=== PATIENT | female | born 1955 | race Caucasian/White ===

== ENCOUNTER 2018-11-14 08:28 | Outpatient (REF) | payer BC, SELFPAY ==
[2018-11-14 22:05] LABS: Anion Gap 7.9 mmol/L (3-11); BUN 20 mg/dL (7-18); CO2 29.1 mmol/L (21.0-32.0); CREATININE 0.78 mg/dL (0.55-1.02); Calcium 9.4 mg/dL (8.5-10.1); Calculated LDL 119 mg/dL; Chloride 102 mmol/L (98-107); Cholesterol 206 mg/dL (50-200); Glucose 81 mg/dL (70-100); HDL Cholesterol 48 mg/dL (40-60); Potassium 4.1 mmol/L (3.5-5.1); Sodium 139 mmol/L (136-145); Triglyceride 195 mg/dL (30-150)
== END 2018-11-14 08:48 ==
LOC: NCHCN 08:28
PROVIDERS: PCP Family Medicine; Visit Provider Internal Medicine
DX: I10 Essential (primary) hypertension (principal); E78.1 Pure hyperglyceridemia
CPT/HCPCS: 80048; 80061

== ENCOUNTER 2018-12-28 09:24 | Outpatient (REF) | payer BC, SELFPAY ==
[2018-12-28 21:28] LABS: Anion Gap 10.5 mmol/L (3-11); BUN 24 mg/dL (7-18); CO2 26.5 mmol/L (21.0-32.0); CREATININE 0.87 mg/dL (0.55-1.02); Calcium 9.4 mg/dL (8.5-10.1); Chloride 101 mmol/L (98-107); Glucose 71 mg/dL (70-100); Sodium 138 mmol/L (136-145)
== END 2018-12-28 09:44 ==
LOC: NCHCN 09:24
PROVIDERS: PCP Family Medicine; Visit Provider Internal Medicine
DX: I10 Essential (primary) hypertension (principal)
CPT/HCPCS: 80048

== ENCOUNTER 2019-01-31 16:55 | Outpatient (REF) | payer BC, SELFPAY ==
[2019-01-31 21:13] LABS: Potassium 3.8 mmol/L (3.5-5.1)
== END 2019-01-31 17:15 ==
LOC: NCHCN 16:55
PROVIDERS: PCP Family Medicine; Visit Provider Internal Medicine
DX: E87.6 Hypokalemia (principal)
CPT/HCPCS: 84132

== ENCOUNTER 2019-02-26 09:08 | Day surgery (SDC) | payer BC, SELFPAY ==
[2019-02-26 09:24] VITALS: BP 145/88; PULSE 76; RESP 16; TEMP 36.4; O2SAT 97
[2019-02-26] MEDS: Lactated Ringers 1,000 ML 80 ML IV (09:46)
--- NOTE | 2019-02-26 10:30 | W.UPDATEHP ---
Date of service: 02/26/19 Time of Service: 10:30 Updated H&P Refer to Most Recent Clinic Note/H&P Dated: 01/28/19 H&P was reviewed,patient examined Changes Noted: Jenna also has a bump over the palmar aspect of the index MCP which continues to bother her. This is likely a palmar corn or inclusion cyst and she asked if this could be removed. We can do this at the same time as the carpal and cubital tunnel. The risks of recurrence and pain were discussed and she agreed to proceed. Heart and Lungs Reviewed: Heart RRR and Lungs CTA
--- NOTE | 2019-02-26 10:45 | PDOC.DSDIS_ITS ---
Discharge Plan Disposition Patient Disposition: HOME Condition: Good Discharge Details Reason For Visit: Right Cubital Tunnel and Carpal Tunnel Syndrome Attending Provider: Isac Aceves Primary Care Provider: Meredith Victor Home Meds and New Rx's Prescriptions: New hydrocodone-acetaminophen 5-325 mg tablet 1 tab PO Q6H PRN PRN (Reason: pain) Qty: 6 RF: 0 ibuprofen 600 mg tablet 600 mg PO TID PRNQty: 90 RF: 3 Continued valsartan 160 mg tablet 160 mg PO HS RF: 0 amlodipine 5 mg tablet 10 mg PO HS RF: 0 Discharge Instructions Additional Instructions: Activity: You should stay in the sling for the first 2 weeks for comfort. You may come out of the sling for gentle motion and hygiene but should largely remain in the sling to allow the incision site to heal. Gentle motion of the elbow, hand, wrist, and fingers is okay and encouraged after the first few days, but no repetitive activites nor heavy lifting. You may apply ice. Medications: - You should take Tylenol (1000mg every 8 hours) and Ibuprofen (600mg every 8 hours) as needed. I recommend taking around the clock for the first few days. - You have been prescribed Hydrocodone for breakthrough pain. Dressings: - The initial surgical dressings should stay in place for 3 days. It may then be removed and kept clean and dry. You should cover with a light gauze dressing/bandaid. - You may shower after 3 days and get the wounds wet. Follow-up: 10 days Referrals: Isac Aceves MD [ [facility] STAFF PHYSICIAN] - Equipment/Supplies: Sling Activity:: Elevate Remove Dressings/Wound Care:: 72 hours Shower/Bathe:: 72 hours Diet:: As Tolerated Discharge Orders Discharge Orders: Discharge Order (Routine); Ordered 02/26/19 Ordered By: Isac Aceves DS: Diagnosis Discharge Diagnosis (1) Right carpal tunnel syndrome: Status: Acute (2) Cubital tunnel syndrome on right: Status: Acute
[2019-02-26] MEDS: ceFAZolin 2 GM/50 ML BAG IVPB (10:53)
[2019-02-26 12:25] VITALS: BP 118/73; PULSE 50; RESP 12; TEMP 36.5; O2SAT 95
[2019-02-26 12:52] VITALS: BP 124/81; PULSE 62; RESP 16; TEMP 36.4; O2SAT 96
--- NOTE | 2019-02-27 07:23 | ROE_ITS ---
Date of service: 02/26/19 Time of Service: 12:23 Operative Note Operative Note DATE OF PROCEDURE: 02/26/19 PRE-OP DIAGNOSIS: Right carpal tunnel syndrome, Right cubital tunnel syndrome, Right palmar hyperkeratotic lesion POST-OP DIAGNOSIS: same PROCEDURE: Left Cubital Tunnel Decompression, left endoscopic carpal tunnel release, excision of left hand corn SURGEON: Isac Aceves BIOMETRIC SCREENER: Maegan Waddell ANESTHESIA: GETA ESTIMATED BLOOD LOSS: 0 PATHOLOGY: none sent TOURNIQUET TIME: 30 COMPLICATIONS: None Patient was transported to: PACU Patient's condition: stable Indications: Jenna is a 63-year-old female who has had symptoms of cubital tunnel and carpal tunnel syndrome. Nonoperative treatment options had been trialed. Nerve conduction studies identified the cubital tunnel as the point of compression. Given failure of nonoperative treatments and persistent symptoms, I offered operative intervention. I reviewed the technical details of a cubital tunnel decompression with possible anterior subcutaneous transposition. I reviewed the risk of the procedure to include bleeding, infection, pain, stiffne ss, tendon instability, damage to the superficial radial nerve, and complete release. Despite these risks, the patient elected to proceed. On the day of surgery she also reported some pain with a lesion over the palmar aspect of her right index MCP. It appeared to be hyperkeratotic lesion. She been trying to keep this pared down but continued to have pain of this area and asked if this could be also be addressed. In evaluation it appeared to be a hyperkeratotic lesion, palmar corn. On unusual occasion without any underlying pressure point that I can identify, it appeared benign and therefore I did offer surgical excision. I reviewed the risk of this procedure to include recurrence, bleeding, infection. Despite this, she elected to proceed. Findings: The lesion of the index MCP joint appeared to be a palmar corn. The entirety of the corn was resected down to healthy tissue without any mass-effect and without any underlying pressure point. The carpal tunnel was tightened. It was entered with an endoscopic technique and released. There was a tightened cubital tunnel. The ulnar nerve was release from the first motor branch distally through the [place] proximally. Procedure Description: Jenna was greeted in the preoperative holding area. Name and surgical site were confirmed. The history and physical was completed. The consent was reviewed the patient and signed. She was taken back to the operating room. The patient was placed in the supine positioned and a general anesthetic was administered. The right was then prepped with ChloraPrep and draped in a standard fashion after a nonsterile tourniquet was placed high up into the axilla of the arm. Prophylactic antibiotics in the form of cefazolin were administered. A timeout was performed for safe surgery. The lesion over the index MCP joint was addressed first. This area was anesthetized with 0.5% ropivacaine with epinephrine. Using a scalpel I excised the lesion and hold down to some bleeding tissue. This is a little bit deeper than I usually would perform but removed it entirely with a solid keratotic core. There is no associated mass-effect. There is no apparent deeper lesion or pressure-point. There is no active bleeding. Attention was then turned to the carpal tunnel surgery. A transverse incision was drawn on the skin proximal to the carpal tunnel. This area was anesthetized with 0.5% bupivacaine with epinephrine. An Esmarch was then used to exsanguinate the upper extremity all the way to the level of the tourniquet high up on the arm. The tourniquet was inflated 275 mmHg stay for 30 minutes. A transverse incision was made in the palmar skin. Blunt dissection was carried down through the soft tissue down to the palmar fascia. The palmar fascia was entered and elevated with a 2 prong skin hook. While grabbing the hand and marking surface anatomy, the carpal tunnel was entered using a series of dilators and hamate finders. A synovial elevator was then inserted to remove any synovial attachments to the overlying transverse carpal ligament. Once this was performed the scope was entered. I had excellent visualization of the transversely running fibers. They were incised completely and the entire extent of the transverse carpal leg was inspected to make sure it was completely. Ragnell retractor is inserted proximally to elevate the skin off of the antebrachial fascia. This was then incised approximate 2 to 3 cm proximally. The wound was irrigated. Irrigation flowed easily both proximally and distally. The wound was then closed with a 4-0 nylon. Attention was then turned to the cubital tunnel procedure. The surgical site w as drawn on the skin as was the lateral epicondyle borders. The planned surgical field was anesthetized with 0.5% bupivacaine with epinephrine. A 6 cm incision was made curvilinearly around the medial elbow. The skin was incised only. The deep tissue subcutaneous fat was dissected with a tenotomy scissors trying to protect any branches of the medial antebrachial cutaneous nerve. Any branches that were identified were retracted out of the way. The ulnar nerve was palpated and identified. A small window into the cubital tunnel was created and the nerve is able to be palpated with the [place]. A Metzenbaum scissor was then used to open up the she is starting with the [place]'s ligament. I then worked distal over the ulnar nerve releasing any constraints against the nerve all the way to the fascia of the FCU muscle belly. This muscle belly was bluntly all the way down to the first motor branch of the ulnar nerve. Likewise starting there at the lateral epicondyle proceeded working proximally to release any constraints over the ulnar nerve. This was taken all the way to the arcade of [place]. The medial intermuscular septum was also palpated but there was no sharp edge adding compression to the nerve. After fully releasing the nerve it was inspected visually. I was also able to palpate the nerve fully and reach one finger up into the proximal distal aspects to make sure there is no constraints against the nerve. A freer elevator was also used to slide easily against the ulnar nerve without any points of constriction. The arm was then taken through range of motion. The ulnar nerve did not sublux/dislocate out of its groove behind the lateral epicondyle. Therefore, no transposition was performed. The tourniquet was then deflated. The wound was thoroughly irrigated. The deep tissue was closed with a 3-0 Vicryl. The skin was closed with a 4-0 nylon. The wound was dressed with Xeroform, 4 x 4's, ABD, Kerlix and an Brian wrap. She was placed into a sling. The patient was transferred back to same day surgery area in stable condition.
== END 2019-02-26 13:41 | disposition home or self-care (01) ==
PROVIDERS: PCP Family Medicine; Visit Provider Student in an Organized Health Care Education/Training Program
PROC: 01N54ZZ Release Median Nerve, Percutaneous Endoscopic Approach (ICD-10-PCS; CPT 29848; principal; 2019-02-26 11:45)
PROC: (CPT 64718; 2019-02-26 11:45)
DX: G56.01 Carpal tunnel syndrome, right upper limb (principal); G56.21 Lesion of ulnar nerve, right upper limb; L84 Corns and callosities
CPT/HCPCS: 64718; 29848; 11420; J0690; J1100; J1200; J1885; J2001; J2250; J2405; J3010; L3650

== ENCOUNTER 2020-01-01 09:21 | Outpatient (REF) | payer BC, SELFPAY ==
[2020-01-01 22:11] LABS: Anion Gap 9.5 mmol/L (3-11); BUN 17 mg/dL (7-18); CO2 27.5 mmol/L (21.0-32.0); CREATININE 0.82 mg/dL (0.55-1.02); Calcium 9.3 mg/dL (8.5-10.1); Calculated LDL 131 mg/dL (<100); Chloride 104 mmol/L (98-107); Cholesterol 212 mg/dL (<200); Glucose 89 mg/dL (74-106); HDL Cholesterol 56 mg/dL (40-60); Potassium 3.9 mmol/L (3.5-5.1); Sodium 141 mmol/L (136-145); Triglyceride 128 mg/dL (<150)
== END 2020-01-01 09:41 ==
LOC: NCHCN 09:21
PROVIDERS: PCP Family Medicine; Visit Provider Internal Medicine
DX: I10 Essential (primary) hypertension (principal); E78.1 Pure hyperglyceridemia
CPT/HCPCS: 80048; 80061

== ENCOUNTER 2020-05-12 01:47 | Outpatient (CLI) | payer BC, SELFPAY ==
--- NOTE | 2020-05-12 10:16 | DI.RAD_ITS ---
EXAM: XR HIP PELVIS ADULT BL CLINICAL HISTORY: BILAT HIP PAIN, M25.552, M25.551. TECHNIQUE: 2D digital imaging was performed. COMPARISON: No exams were available for comparison FINDINGS: BONES: No acute fracture is present. No bony destructive lesion is seen. JOINTS: No dislocation present. Mild acetabular spurring is seen in the left hip. The right hip is w ell maintained. SOFT TISSUE: Normal. IMPRESSION: Mild degenerative changes of the left hip. Unremarkable right hip. DATA REPOSITORY: RADIATION DOSE DELIVERED:
== END 2020-05-12 02:07 ==
PROVIDERS: PCP Family Medicine; Visit Provider Chiropractor
DX: M16.12 Unilateral primary osteoarthritis, left hip (principal); M25.551 Pain in right hip
CPT/HCPCS: 73521

== ENCOUNTER 2020-09-22 21:00 | Outpatient (REF) | payer BC, SELFPAY ==
[2020-09-24 14:24] LABS: COVID-19 RT-PCR UVMMC Result Negative (Negative)
== END 2020-09-22 21:01 | disposition home or self-care (01) ==
LOC: NCHCN 21:00
PROVIDERS: PCP Family Medicine; Visit Provider Nurse Practitioner Family
DX: Z20.822 Contact with and (suspected) exposure to COVID-19 (principal); R19.7 Diarrhea, unspecified
CPT/HCPCS: U0003

== ENCOUNTER 2021-01-20 14:49 | Outpatient (REF) | payer MEDICARE, BC, SELFPAY ==
[2021-01-20 22:15] LABS: Anion Gap 8.8 mmol/L (3-11); BUN 19 mg/dL (7-18); CO2 27.2 mmol/L (21.0-32.0); CREATININE 0.8 mg/dL (0.55-1.02); Calcium 9.2 mg/dL (8.5-10.1); Calculated LDL 140 mg/dL (<100); Chloride 102 mmol/L (98-107); Cholesterol 225 mg/dL (<200); Glucose 81 mg/dL (74-106); HDL Cholesterol 53 mg/dL (40-60); Potassium 3.9 mmol/L (3.5-5.1); Sodium 138 mmol/L (136-145); Triglyceride 161 mg/dL (<150)
== END 2021-01-20 14:50 | disposition home or self-care (01) ==
LOC: NCHCN 14:49
PROVIDERS: PCP Family Medicine; Visit Provider Internal Medicine
DX: I10 Essential (primary) hypertension (principal); E78.5 Hyperlipidemia, unspecified
CPT/HCPCS: 80048; 80061

== ENCOUNTER 2022-01-24 16:05 | Outpatient (REF) | payer MEDICARE, BC, SELFPAY ==
[2022-01-24 16:24] LABS: Anion Gap 8.2 mmol/L (3-11); BUN 22 mg/dL (7-18); CO2 28.8 mmol/L (21.0-32.0); CREATININE 0.8 mg/dL (0.55-1.02); Calcium 9.6 mg/dL (8.5-10.1); Calculated LDL 114 mg/dL (<100); Chloride 103 mmol/L (98-107); Cholesterol 200 mg/dL (<200); Estimated GFR 81.21 (mL/min/1.73m2); Glucose 86 mg/dL (74-106); HDL Cholesterol 57 mg/dL (40-60); Potassium 4.4 mmol/L (3.5-5.1); Sodium 140 mmol/L (136-145); Triglyceride 146 mg/dL (<150)
== END 2022-01-24 16:06 | disposition home or self-care (01) ==
LOC: NCHCN 16:05
PROVIDERS: PCP Family Medicine; Visit Provider Internal Medicine
DX: E78.5 Hyperlipidemia, unspecified (principal); I10 Essential (primary) hypertension
CPT/HCPCS: 80048; 80061

== ENCOUNTER 2022-05-31 15:04 | Outpatient (REF) | payer MEDICARE, BC, SELFPAY ==
[2022-05-31 20:56] LABS: HCT 41.3 % (36.0-46.0); HGB 14.4 g/dL (11.2-15.7); MCH 29.3 pg (27.0-33.0); MCHC 34.9 % (32.0-36.0); MCV 84 fL (80-95); MPV 10.3 fL (8.0-11.0); Platelet Count 310 10^3/uL (130-400); RBC 4.91 10^6/uL (3.93-5.22); RDW 12.4 % (11.7-14.6); RDW-SD 37.8 fL; WBC 6.36 10^3/uL (4.4-10.8)
[2022-05-31 21:32] LABS: Ferritin 98 ng/mL (8-252); TSH (W/Ref FT4) 1.04 uIU/mL (0.36-3.74)
[2022-05-31 21:40] LABS: Vitamin D 25 Total 32.8 ng/mL (30-100)
== END 2022-05-31 15:05 | disposition home or self-care (01) ==
LOC: NCHCN 15:04
PROVIDERS: PCP Family Medicine; Visit Provider Nurse Practitioner Family
DX: R42 Dizziness and giddiness (principal)
CPT/HCPCS: 82306; 85027; 82728; 84443

== ENCOUNTER 2023-01-20 15:51 | Outpatient (REF) | payer MEDICARE, BC, SELFPAY ==
[2023-01-20 14:19] LABS: Calculated LDL 129 mg/dL (<100); Cholesterol 208 mg/dL (<200); HDL Cholesterol 55 mg/dL (40-60); Triglyceride 124 mg/dL (<150)
== END 2023-01-20 15:52 | disposition home or self-care (01) ==
LOC: NCHCN 15:51
PROVIDERS: PCP Family Medicine; Visit Provider Internal Medicine
DX: E78.5 Hyperlipidemia, unspecified (principal)
CPT/HCPCS: 80061

== ENCOUNTER 2023-01-27 15:30 | Outpatient (REF) | payer MEDICARE, BC, SELFPAY ==
[2023-01-27 20:41] LABS: Anion Gap 7.3 mmol/L (3-11); BUN 17 mg/dL (7-18); CO2 28.7 mmol/L (21.0-32.0); CREATININE 0.9 mg/dL (0.55-1.02); Calcium 9.4 mg/dL (8.5-10.1); Chloride 103 mmol/L (98-107); Estimated GFR 70.07 (mL/min/1.73m2); Glucose 93 mg/dL (74-106); Potassium 3.7 mmol/L (3.5-5.1); Sodium 139 mmol/L (136-145)
== END 2023-01-27 15:31 | disposition home or self-care (01) ==
LOC: NCHCN 15:30
PROVIDERS: PCP Family Medicine; Visit Provider Internal Medicine
DX: I10 Essential (primary) hypertension (principal)
CPT/HCPCS: 80048

== ENCOUNTER 2024-01-29 09:42 | Outpatient (REF) | payer MEDICARE, BC, SELFPAY ==
[2024-01-29 16:36] LABS: ALT 49 U/L (14-59); AST 28 U/L (15-37); Albumin 4.3 g/dL (3.4-5.0); Alkaline Phosphatase 113 U/L (46-116); BUN 15 mg/dL (7-18); Bilirubin, Total 0.69 mg/dL (0.2-1.0); CREATININE 0.9 mg/dL (0.55-1.02); Calcium 9.4 mg/dL (8.5-10.1); Calculated LDL 64 mg/dL (<100); Chloride 105 mmol/L (98-107); Cholesterol 149 mg/dL (<200); Estimated GFR 69.64 (mL/min/1.73m2); Glucose 95 mg/dL (74-106); HDL Cholesterol 68 mg/dL (40-60); Potassium 4.5 mmol/L (3.5-5.1); Sodium 141 mmol/L (136-145); Total Protein 7.6 g/dL (6.4-8.2); Triglyceride 85 mg/dL (<150)
== END 2024-01-29 09:43 | disposition home or self-care (01) ==
LOC: NCHCN 09:42
PROVIDERS: PCP Internal Medicine; Visit Provider Internal Medicine
DX: E78.5 Hyperlipidemia, unspecified (principal)
CPT/HCPCS: 80053; 80061